=== PATIENT | male | born 1980 | race Caucasian/White ===

== ENCOUNTER 2016-12-22 08:14 | Emergency (ER) | payer OTHER ==
[~2016-12-22] VITALS: Ht 185.4 cm; Wt 135.0 kg
[~2016-12-22 08:14] MED LIST: MOTRIN600 M1 PO; No home meds
[2016-12-22] MEDS ORDERED: SINGULAIR10 MG PO (08:29)
[2016-12-22] MEDS ORDERED: ANDRODERM1 EACH SC (08:29)
[2016-12-22 08:47] LABS: BASOPHIL COUNT 0.1 K/uL (0-0.1); EOSINOPHIL COUNT 0.3 K/uL (0-0.3); HEMATOCRIT 50.6 % (38.0-50.0); IMMATURE GRANULOCYTE (%) 0.8 % (0.0-0.7); IMMATURE GRANULOCYTE COUNT 0.1 K/uL; INSTRUMENT ABS NEUTROPHIL CT 7.5 K/uL; LYMPHOCYTE COUNT 1.9 K/uL (1.0-2.8); MCH 28.7 PG (29.0-34.0); MCHC 33.4 G/DL (30.0-36.0); MCV 86.1 FL (86-99); MEAN PLAT.VOLUME 10.7 uM^3 (9.0-12.4); MONOCYTE COUNT 0.7 K/uL (0-0.8); NEUTROPHIL (%) 70.8 % (45-76); NEUTROPHIL COUNT 7.5 K/uL (1.8-6.4); PLATELET COUNT 228 K/uL (156-360); RBC DIS.WIDTH-CV 13.7 % (11.8-14.6); RBC DIS.WIDTH-SD 43.4 % (39-53); RED BLOOD COUNT 5.88 M/uL (4.00-5.50); WHITE BLOOD COUNT 10.6 K/uL (4.1-10.2)
[2016-12-22 08:53] LABS: INTER. NORMALIZED RATIO 1.1; PROTHROMBIN TIME 11.6 SEC (10.2-12.9)
[2016-12-22 08:55] LABS: PTT 34.4 SEC (25-37)
[2016-12-22 09:00] LABS: CHLORIDE 106 mEq/L (99-109); POTASSIUM 4.4 mEq/L (3.7-5.4); SODIUM 136 mEq/L (136-147)
[2016-12-22 09:02] LABS: GLUCOSE 105 mg/dL (70-99)
[2016-12-22 09:03] LABS: ANION GAP 8 MEQ/L (2-14)
[2016-12-22 09:06] LABS: GFR ESTIMATE (CALCULATED) > 59 mL/min/
[2016-12-22 09:07] LABS: UREA NITROGEN (BUN) 18 mg/dL (9-23)
[2016-12-22 09:15] LABS: D-DIMER ELISA < 150.00 ng/mLDDU (<230); TROP-I INTERPRETATION NEGATIVE; TROPONIN-I 0.01 ng/mL (0.0-0.30)
[2016-12-22 11:17] LABS: AMPHETAMINE NEGATIVE (500 ng/mL); BARBITURATES NEGATIVE (200 ng/mL); BENZODIAZEPINES NEGATIVE (150 ng/mL); COCAINE NEGATIVE (150 ng/mL); INTERNAL CONTROLS VALID? YES; METHADONE NEGATIVE (200 ng/mL); METHAMPHETAMINE NEGATIVE (500 ng/mL); OPIATES (MORPHINE) NEGATIVE (100 ng/mL); OXYCODONE NEGATIVE (100 ng/mL); PHENCYCLIDINE NEGATIVE (25 ng/mL); PROPOXYPHENE NEGATIVE (300 ng/mL); THC CANNABINOIDS NEGATIVE (50 ng/mL); TRICYCLIC ANTIDEPRESSANTS NEGATIVE (300 ng/mL)
[2016-12-22 15:01] VITALS: BP 129/73
== END 2016-12-22 15:29 | disposition home or self-care (01) ==
LOC: EME 08:14
PROVIDERS: Emergency Medicine
PROC: 5A2204Z Restoration of Cardiac Rhythm, Single (ICD-10-PCS; principal; 2016-12-22)
DX: I48.0 Paroxysmal atrial fibrillation (principal); J45.909 Unspecified asthma, uncomplicated; E89.0 Postprocedural hypothyroidism; Z79.82 Long term (current) use of aspirin
CPT/HCPCS: 71010; 80048; 83880; 84443; 84484; 85025; 85379; 85610; 85730; 93005; 99281; 99285; J2250; J7030

== ENCOUNTER 2017-04-09 16:37 | Emergency (ER) | payer OTHER ==
[~2017-04-09] VITALS: Ht 185.4 cm; Wt 144.5 kg
[~2017-04-09 16:37] MED LIST changes: +ANDRODERM1 EACH SC; +SINGULAIR10 MG PO
[2017-04-09 17:11] LABS: BASOPHIL COUNT 0.1 K/uL (0-0.1); EOSINOPHIL (%) 2.9 % (0-5); EOSINOPHIL COUNT 0.5 K/uL (0-0.3); HEMATOCRIT 52.5 % (38.0-50.0); IMMATURE GRANULOCYTE COUNT 0.2 K/uL; INSTRUMENT ABS NEUTROPHIL CT 11.1 K/uL; LYMPHOCYTE COUNT 2.6 K/uL (1.0-2.8); MCH 29.4 PG (29.0-34.0); MCHC 34.1 G/DL (30.0-36.0); MCV 86.3 FL (86-99); MEAN PLAT.VOLUME 9.9 uM^3 (9.0-12.4); MONOCYTE (%) 8.1 % (3-12); MONOCYTE COUNT 1.3 K/uL (0-0.8); NEUTROPHIL (%) 70.7 % (45-76); NEUTROPHIL COUNT 11.1 K/uL (1.8-6.4); PLATELET COUNT 266 K/uL (156-360); RBC DIS.WIDTH-CV 13.9 % (11.8-14.6); RBC DIS.WIDTH-SD 43.8 % (39-53); RED BLOOD COUNT 6.08 M/uL (4.00-5.50); WHITE BLOOD COUNT 15.7 K/uL (4.1-10.2)
[2017-04-09 17:23] LABS: CHLORIDE 105 mEq/L (99-109); SODIUM 137 mEq/L (136-147)
[2017-04-09 17:25] LABS: GLUCOSE 84 mg/dL (70-99)
[2017-04-09 17:26] LABS: ANION GAP 11 MEQ/L (2-14)
[2017-04-09 17:27] LABS: TOTAL BILIRUBIN 0.6 mg/dL (0.0-1.0)
[2017-04-09 17:29] LABS: ALKALINE PHOSPHATASE 53 IU/L (3-129); GFR ESTIMATE (CALCULATED) > 59 mL/min/
[2017-04-09 17:30] LABS: UREA NITROGEN (BUN) 18 mg/dL (9-23)
[2017-04-09 17:33] LABS: TROP-I INTERPRETATION NEGATIVE; TROPONIN-I 0.03 ng/mL (0.0-0.30)
[2017-04-09 18:58] LABS: ADD MIUA? YES; BILIRUBIN NEGATIVE; BLOOD SMALL; COLOR YELLOW ((YELLOW)); GLUCOSE (STRIP) NEGATIVE; KETONES 5; LEUKOCYTES NEGATIVE; NITRITE NEGATIVE; PROTEIN (STRIP) NEGATIVE; SPECIFIC GRAVITY 1.017 (1.000-1.030); UROBILINOGEN 0.2 MG/DL (0.2-1.0)
[2017-04-09 19:05] LABS: BACTERIA NONE SEEN /HPF; EPITHELIAL CELLS NONE SEEN /HPF; MUCUS NONE SEEN /LPF; UCUL ADDED? NO; WHITE BLOOD CELLS 0-5 /HPF (0-5)
[2017-04-09 19:12] LABS: ADD MEDTOX COMMENT Y; AMPHETAMINE NEGATIVE (500 ng/mL); BARBITURATES NEGATIVE (200 ng/mL); BENZODIAZEPINES NEGATIVE (150 ng/mL); COCAINE NEGATIVE (150 ng/mL); INTERNAL CONTROLS VALID? YES; METHADONE NEGATIVE (200 ng/mL); METHAMPHETAMINE NEGATIVE (500 ng/mL); OPIATES (MORPHINE) PRESUMPTIVE POSITIVE (100 ng/mL); OXYCODONE NEGATIVE (100 ng/mL); PHENCYCLIDINE NEGATIVE (25 ng/mL); PROPOXYPHENE NEGATIVE (300 ng/mL); THC CANNABINOIDS NEGATIVE (50 ng/mL); TRICYCLIC ANTIDEPRESSANTS NEGATIVE (300 ng/mL)
[2017-04-09 19:52] LABS: OPIATES QUANTITATIVE VALUE 0 NG/ML
[2017-04-09 22:38] VITALS: BP 133/71
== END 2017-04-09 22:39 | disposition home or self-care (01) ==
LOC: EME 16:37
PROVIDERS: Emergency Medicine
PROC: 5A2204Z Restoration of Cardiac Rhythm, Single (ICD-10-PCS; principal; 2017-04-09)
DX: I48.91 Unspecified atrial fibrillation (principal); R06.00 Dyspnea, unspecified
CPT/HCPCS: 71020; 80053; 81003; 83880; 84484; 84999; 85025; 93005; 99281; 99285; J2250; J7030; J7050

== ENCOUNTER 2017-04-11 23:44 | Emergency (ER) | payer OTHER ==
[~2017-04-11] VITALS: Ht 182.9 cm; Wt 152.0 kg
[2017-04-12 00:46] LABS: BASOPHIL COUNT 0.1 K/uL (0-0.1); EOSINOPHIL (%) 4.7 % (0-5); EOSINOPHIL COUNT 0.5 K/uL (0-0.3); HEMATOCRIT 50.3 % (38.0-50.0); IMMATURE GRANULOCYTE (%) 1.3 % (0.0-0.7); IMMATURE GRANULOCYTE COUNT 0.1 K/uL; INSTRUMENT ABS NEUTROPHIL CT 6.8 K/uL; LYMPHOCYTE COUNT 2.1 K/uL (1.0-2.8); MCH 29.4 PG (29.0-34.0); MCHC 33.8 G/DL (30.0-36.0); MEAN PLAT.VOLUME 10.3 uM^3 (9.0-12.4); MONOCYTE (%) 6.5 % (3-12); MONOCYTE COUNT 0.7 K/uL (0-0.8); NEUTROPHIL (%) 66.3 % (45-76); NEUTROPHIL COUNT 6.8 K/uL (1.8-6.4); PLATELET COUNT 243 K/uL (156-360); RBC DIS.WIDTH-CV 13.7 % (11.8-14.6); RBC DIS.WIDTH-SD 43.6 % (39-53); RED BLOOD COUNT 5.78 M/uL (4.00-5.50); WHITE BLOOD COUNT 10.3 K/uL (4.1-10.2)
[2017-04-12 00:56] LABS: CHLORIDE 110 mEq/L (99-109); POTASSIUM 4.2 mEq/L (3.7-5.4); SODIUM 138 mEq/L (136-147)
[2017-04-12 00:59] LABS: ANION GAP 8 MEQ/L (2-14); GLUCOSE 142 mg/dL (70-99)
[2017-04-12 01:02] LABS: GFR ESTIMATE (CALCULATED) > 59 mL/min/
[2017-04-12 01:03] LABS: UREA NITROGEN (BUN) 16 mg/dL (9-23)
[2017-04-12 01:09] LABS: TROP-I INTERPRETATION NEGATIVE; TROPONIN-I 0.02 ng/mL (0.0-0.30)
[2017-04-12 05:11] VITALS: BP 122/79
== END 2017-04-12 05:15 | disposition home or self-care (01) ==
LOC: EME 23:44
PROVIDERS: Emergency Medicine
PROC: 5A2204Z Restoration of Cardiac Rhythm, Single (ICD-10-PCS; principal; 2017-04-12)
DX: I48.91 Unspecified atrial fibrillation (principal); G89.29 Other chronic pain; M54.9 Dorsalgia, unspecified
CPT/HCPCS: 80048; 84484; 85025; 93005; 99281; 99285; J7050

== ENCOUNTER 2017-04-20 00:42 | Emergency (ER) | payer OTHER ==
[~2017-04-20] VITALS: Ht 185.4 cm; Wt 143.0 kg
[2017-04-20 01:12] LABS: BASOPHIL COUNT 0.1 K/uL (0-0.1); EOSINOPHIL (%) 3.6 % (0-5); EOSINOPHIL COUNT 0.4 K/uL (0-0.3); HEMATOCRIT 52.1 % (38.0-50.0); IMMATURE GRANULOCYTE (%) 0.8 % (0.0-0.7); IMMATURE GRANULOCYTE COUNT 0.1 K/uL; INSTRUMENT ABS NEUTROPHIL CT 7.8 K/uL; LYMPHOCYTE COUNT 2.3 K/uL (1.0-2.8); MCH 29.9 PG (29.0-34.0); MCHC 34.4 G/DL (30.0-36.0); MEAN PLAT.VOLUME 10.2 uM^3 (9.0-12.4); MONOCYTE (%) 6.9 % (3-12); MONOCYTE COUNT 0.8 K/uL (0-0.8); NEUTROPHIL (%) 67.8 % (45-76); NEUTROPHIL COUNT 7.8 K/uL (1.8-6.4); PLATELET COUNT 246 K/uL (156-360); RBC DIS.WIDTH-CV 13.6 % (11.8-14.6); RBC DIS.WIDTH-SD 42.9 % (39-53); RED BLOOD COUNT 5.99 M/uL (4.00-5.50); WHITE BLOOD COUNT 11.4 K/uL (4.1-10.2)
[2017-04-20 01:33] LABS: CHLORIDE 107 mEq/L (99-109); POTASSIUM 4.1 mEq/L (3.7-5.4); SODIUM 136 mEq/L (136-147)
[2017-04-20 01:34] LABS: GLUCOSE 155 mg/dL (70-99)
[2017-04-20 01:36] LABS: ANION GAP 11 MEQ/L (2-14)
[2017-04-20 01:38] LABS: GFR ESTIMATE (CALCULATED) > 59 mL/min/
[2017-04-20 01:39] LABS: UREA NITROGEN (BUN) 9 mg/dL (9-23)
[2017-04-20 01:41] LABS: TROP-I INTERPRETATION NEGATIVE; TROPONIN-I 0.02 ng/mL (0.0-0.30)
[2017-04-20 03:42] VITALS: BP 116/62
== END 2017-04-20 03:43 | disposition home or self-care (01) ==
LOC: EME 00:42
PROVIDERS: Emergency Medicine
PROC: 5A2204Z Restoration of Cardiac Rhythm, Single (ICD-10-PCS; principal; 2017-04-20)
DX: I48.91 Unspecified atrial fibrillation (principal)
CPT/HCPCS: 80048; 84484; 85025; 93005; 99281; 99285; J7030; J7050

== ENCOUNTER 2017-05-01 20:10 | Inpatient (IN) | payer OTHER ==
[~2017-05-01] VITALS: Ht 185.4 cm; Wt 145.0 kg
[2017-05-01 21:55] LABS: CHLORIDE 105 mEq/L (99-109); SODIUM 138 mEq/L (136-147)
[2017-05-01 21:56] LABS: BASOPHIL COUNT 0.1 K/uL (0-0.1); EOSINOPHIL (%) 3.6 % (0-5); EOSINOPHIL COUNT 0.4 K/uL (0-0.3); HEMATOCRIT 52.2 % (38.0-50.0); IMMATURE GRANULOCYTE (%) 1.2 % (0.0-0.7); IMMATURE GRANULOCYTE COUNT 0.1 K/uL; INSTRUMENT ABS NEUTROPHIL CT 8.1 K/uL; LYMPHOCYTE COUNT 2.4 K/uL (1.0-2.8); MCH 29.8 PG (29.0-34.0); MCHC 34.5 G/DL (30.0-36.0); MCV 86.4 FL (86-99); NEUTROPHIL (%) 66.9 % (45-76); NEUTROPHIL COUNT 8.1 K/uL (1.8-6.4); PLATELET COUNT 226 K/uL (156-360); RBC DIS.WIDTH-CV 13.3 % (11.8-14.6); RBC DIS.WIDTH-SD 41.9 % (39-53); RED BLOOD COUNT 6.04 M/uL (4.00-5.50); WHITE BLOOD COUNT 12.1 K/uL (4.1-10.2)
[2017-05-01 21:57] LABS: GLUCOSE 82 mg/dL (70-99)
[2017-05-01 21:58] LABS: ANION GAP 12 MEQ/L (2-14)
[2017-05-01 22:01] LABS: GFR ESTIMATE (CALCULATED) > 59 mL/min/
[2017-05-01 22:02] LABS: UREA NITROGEN (BUN) 15 mg/dL (9-23)
[2017-05-01 22:08] LABS: TROP-I INTERPRETATION NEGATIVE; TROPONIN-I 0.02 ng/mL (0.0-0.30)
[2017-05-02 01:50] LABS: INTER. NORMALIZED RATIO 1.1; PROTHROMBIN TIME 12.7 SEC (10.2-12.9)
[2017-05-02 01:52] LABS: PTT 33.1 SEC (25-37)
[2017-05-02] MEDS ORDERED: FLECAINIDE ACE100 MG PO (01:59)
[2017-05-02] MEDS ORDERED: PANTOPRAZOLE SO20 MG PO (02:00)
[2017-05-02] MEDS ORDERED: VENTOLIN HFA18 GM IH (02:00)
[2017-05-02 03:43] LABS: TROP-I INTERPRETATION NEGATIVE; TROPONIN-I 0.03 ng/mL (0.0-0.30)
[2017-05-02 07:25] VITALS: BP 126/72
[2017-05-02 11:40] VITALS: BP 126/80
== END 2017-05-02 13:55 | disposition home or self-care (01) | DRG 309 ==
LOC: EME 20:10 → EDOF 05-02 02:24 → ENRESERV 05-02 02:25 → 4EAST 05-02 05:44
PROVIDERS: Emergency Medicine; Hospitalist
PROC: 5A2204Z Restoration of Cardiac Rhythm, Single (ICD-10-PCS; principal; 2017-05-02)
DX: I48.0 Paroxysmal atrial fibrillation (principal); E66.9 Obesity, unspecified; Z68.41 Body mass index [BMI] 40.0-44.9, adult
CPT/HCPCS: 71010; 80048; 84484; 85025; 85610; 85730; 93005; 99281; 99285; J7050

== ENCOUNTER → 2017-11-11 | Outpatient (CLI) | payer OTHER ==
[~2017-11-11] VITALS: Ht 185.4 cm; Wt 146.4 kg
[~2017-11-11] MED LIST changes: +CREATINE 50005000 MG PO; +FLECAINIDE ACE100 MG PO; +MULTIPLE VITAM1 EAC1 PO; +PANTOPRAZOLE SO20 MG PO; +TESTOSTERO100 MG/11 IM; +VENTOLIN HFA18 GM IH; +VITAMIN D5000 UNI1 PO; +[UNRECOGNIZED DRUG - OTHER] PO
== END | disposition home or self-care (01) ==
LOC: AMB 09:42
PROC: 0DB48ZX Excision of Esophagogastric Junction, Via Natural or Artificial Opening Endoscopic, Diagnostic (ICD-10-PCS; principal; 2017-11-11)
DX: K22.70 Barrett's esophagus without dysplasia (principal); K44.9 Diaphragmatic hernia without obstruction or gangrene; K21.0 Gastro-esophageal reflux disease with esophagitis; J45.909 Unspecified asthma, uncomplicated
CPT/HCPCS: 88305; J2250